=== PATIENT | male | born 2000 | race Caucasian/White ===

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

== ENCOUNTER 2022-01-25 10:19 | Emergency (ER) | payer SELFPAY ==
[~2022-01-25] VITALS: Ht 175.3 cm; Wt 77.1 kg
[~2022-01-25 10:19] MED LIST changes: +ALBU-118 IH; -CHERATUSSIN AC PO; -DELTASONE10 M1 PO; -METAPROTER10 MG/5 M1 PO; +PRED10TA5 PO; -PROAIR HFA0.09 MG/Ac IH; +[UNRECOGNIZED DRUG - CODE] PO; +[UNRECOGNIZED DRUG - CODE] PO
[2022-01-25 10:26] VITALS: BP 122/66
--- NOTE | 2022-01-25 11:21 | NUR ---
PT SWABBED AND SENT TO LAB
--- NOTE | 2022-01-25 11:30 | NUR ---
21/M WALKED IN ACCOMPANIED BY DAD C/O INTERMITTENT FEVER AND SWOLLEN LYMPH NODE TO LEFT NECK ONSET 3 DAYS. DENIES ACHES OR CHILLS. DENIES COUGH. AAO4, ON ROOM AIR. AFEBRILE AT TRIAGE PMH: DENIES
[2022-01-25] MEDS ORDERED: IBUP-1842 PO (12:36)
[2022-01-25] MEDS ORDERED: DIPH25TA53 PO (12:43)
[2022-01-25 12:50] VITALS: BP 118/63
--- NOTE | 2022-01-25 12:50 | NUR ---
Patient discharged with v/s stable. Written and verbal after care instructions given and explained. Patient alert, oriented and verbalized understanding of instructions. Ambulatory with steady gait. All questions addressed prior to discharge. ID band removed. Patient advised to follow up with PMD. Patient educated on indication of medication including possible reaction and side effects. Opportunity to ask questions provided and answered.
== END 2022-01-25 12:50 | disposition home or self-care (01) ==
LOC: MED 10:19
DX: J10.1 Influenza due to other identified influenza virus with other respiratory manifestations (principal); Z20.822 Contact with and (suspected) exposure to COVID-19; J45.909 Unspecified asthma, uncomplicated; Z79.899 Other long term (current) drug therapy
CPT/HCPCS: 87426; 87804; 99283; Q0163